=== PATIENT | male | born 1975 | race Caucasian/White ===

== ENCOUNTER 2022-03-28 13:16 | Emergency (ER) | payer MEDICARE, MEDICAID ==
[~2022-03-28] VITALS: Wt 124.7 kg
[2022-03-28 17:11] LABS: BILIRUBIN 1+ (Negative); BLOOD 1+ (Negative); CLARITY Cloudy (Clear); COLOR Dark Yellow (Yellow); GLUCOSE Negative (Negative); KETONE 1+ (Negative); LEUKO ESTERASE Trace (Negative); NITRITE Negative (Negative); SPECIFIC GRAVITY >= 1.030 (1.001-1.030)
[2022-03-28 17:23] LABS: MUCOUS 1+; RBC 16-20 rbc/hpf (0-2)
[2022-03-28] MEDS ORDERED: SEPTDS PO (19:49)
== END 2022-03-28 20:02 | disposition home or self-care (01) ==
LOC: ED 13:16
PROVIDERS: Physician Assistant
DX: N39.0 Urinary tract infection, site not specified (principal); Z91.040 Latex allergy status

== ENCOUNTER 2022-03-30 08:32 | Emergency (ER) | payer MEDICARE, MEDICAID ==
[~2022-03-30] VITALS: Wt 125.2 kg
[~2022-03-30 08:32] MED LIST: SEPTDS PO
[2022-03-30] MEDS ORDERED: ACETAMINOP160 MG/5 M PO (09:25)
[2022-03-30] MEDS ORDERED: MOTRIN CHI100 MG/51 PO (09:25)
== END 2022-03-30 09:30 | disposition home or self-care (01) ==
LOC: ED 08:32
DX: M54.50 Low back pain, unspecified (principal); R11.0 Nausea; R82.998 Other abnormal findings in urine; Z91.048 Other nonmedicinal substance allergy status; Z79.2 Long term (current) use of antibiotics

== ENCOUNTER → 2022-04-13 | Outpatient (CLI) | payer MEDICARE, MEDICAID ==
[~2022-04-13] MED LIST changes: +ACETAMINOP160 MG/5 M PO; +MOTRIN CHI100 MG/51 PO
[2022-04-13 12:30] LABS: BASO % 0.6 % (0.0-1.0); EOS # 0.2 10*3/uL (0.0-0.4); EOS % 2.5 % (1.0-4.0); LYMPH # 1.4 10*3/uL (1.3-4.4); LYMPH % 19.8 % (27.0-41.0); MEAN CELL VOLUME 93.4 fl (80.0-94.0); MEAN CORPUSCULAR HGB 30.5 pg (27.0-31.0); MEAN CORPUSCULAR HGB CONC 32.7 g/dl (33.0-37.0); MEAN PLATELET VOLUME 10.4 fl (9.6-12.3); MONO # 0.6 10*3/uL (0.1-1.0); NEUT % 68.5 % (47.0-73.0); PLATELET COUNT AUTOMATED 221 10*3/uL (130-400); RED BLOOD COUNT 5.14 10*6/uL (4.50-5.90); RED CELL DISTRI WIDTH 12.7 % (0-14.5); WHITE BLOOD COUNT 7.2 10*3/uL (4.8-10.8)
[2022-04-13 12:52] LABS: BUN 8 mg/dl (7-24); CHLORIDE 106 mmol/L (98-107); CHOLESTEROL 145 mg/dL (<200); CREATININE 0.82 mg/dL (0.70-1.30); POTASSIUM 3.9 mmol/L (3.5-5.1); SGPT/ALT 28 U/L (12-78); SODIUM 139 mmol/L (136-145); THYROXINE (T4) TOTAL 9.7 ug/dl (4.5-12.1); TOTAL PROTEIN 7.5 gm/dL (6.4-8.2); TRIGLYCERIDES 61 mg/dl (<150)
[2022-04-13 12:57] LABS: ALKALINE PHOSPHATASE 81 U/L (45-117); LDL CHOLESTEROL 71 mg/dL (9-159)
== END | disposition home or self-care (01) ==
LOC: LAB 11:46
PROVIDERS: ATTEND Family Medicine
DX: R73.9 Hyperglycemia, unspecified (principal); E78.5 Hyperlipidemia, unspecified; E55.9 Vitamin D deficiency, unspecified; Z79.899 Other long term (current) drug therapy

== ENCOUNTER → 2024-08-06 | Outpatient (CLI) | payer MEDICARE, MEDICAID ==
[2024-08-06 12:03] LABS: BASO % 0.7 % (0.0-1.0); EOS # 0.3 10*3/uL (0.0-0.4); EOS % 4.6 % (1.0-4.0); HEMATOCRIT 49.4 % (42.0-52.0); MEAN CORPUSCULAR HGB 29.2 pg (27.0-31.0); MEAN CORPUSCULAR HGB CONC 31.4 g/dl (33.0-37.0); MEAN PLATELET VOLUME 11.2 fl (9.6-12.3); MONO # 0.6 10*3/uL (0.1-1.0); MONO % 10.2 % (3.0-9.0); NEUT # 3.5 10*3/uL (2.3-7.9); NEUT % 57.6 % (47.0-73.0); PLATELET COUNT AUTOMATED 187 10*3/uL (130-400); RED BLOOD COUNT 5.31 10*6/uL (4.50-5.90); RED CELL DISTRI WIDTH 12.9 % (0-14.5); WHITE BLOOD COUNT 6.1 10*3/uL (4.8-10.8)
[2024-08-06 13:01] LABS: ALKALINE PHOSPHATASE 75 U/L (46-116); BUN 10 mg/dl (9-23); CHLORIDE 106 mmol/L (98-107); CHOLESTEROL 150 mg/dL (<200); LDL CHOLESTEROL 88 mg/dL (9-159); POTASSIUM 4.2 mmol/L (3.4-5.1); SGPT/ALT 14 U/L (5-49); THYROXINE (T4) TOTAL 7.3 ug/dl (4.5-10.9); TRIGLYCERIDES 46 mg/dl (<150)
[2024-08-06 13:02] LABS: VITAMIN D, 25-HYDROXY 24.4 ng/mL (30-100)
== END | disposition home or self-care (01) ==
LOC: LAB 11:22
PROVIDERS: ATTEND Family Medicine
DX: E55.9 Vitamin D deficiency, unspecified (principal); E66.01 Morbid (severe) obesity due to excess calories; R73.9 Hyperglycemia, unspecified; Z79.899 Other long term (current) drug therapy